=== PATIENT | male | born 1970 | race American Indian/Alaskan Native ===

== ENCOUNTER 2019-05-14 09:23 | Emergency (ER) | payer SELFPAY ==
[2019-05-14] MEDS ORDERED: predniSONE 20 MG TAB PO ONE (12:30)
[2019-05-14] MEDS ORDERED: IPRATROPIUM/ALBUTEROL SULFATE 3 ML AMPUL.NEB IH ONE ×3 (12:30→12:54)
--- NOTE | 2019-05-14 12:37 | Emergency Department Report ---
ED Asthma HPI - General Chief Complaint: Adult Asthma Stated Complaint: ASTHMA ATTACK Time Seen by Provider: 05/14/19 12:30 Source: patient Mode of arrival: Ambulatory Limitations: No Limitations - History of Present Illness Initial Comments: Chief complaint: "Asthma attack" HPI: This is a 49-year-old male with history of mild intermittent asthma who p resents with shortness of breath wheezing for the past day. He has asthma attack of this severity of approximately twice a year when he has a cold. Inhaler at home did not provide any relief. Denies pain. Denies fever. MD Complaint: "asthma attack", shortness of breath, wheezing -: Gradual, days(s) (2) Severity: moderate Context: recent URI Associated Symptoms: dry cough Treatments Prior to Arrival: inhaled bronchodilator - Related Data Previous Rx's Medication Instructions Recorded Last Taken Type Albuterol INH(or & Nicu Only) 2 puff IH QID PRN #8.5 gram 05/14/19 Unknown Rx [ProAir HFA Inhaler] predniSONE [Deltasone] 3 tab PO QDAY 3 Days #9 tab 05/14/19 Unknown Rx Allergies Allergy/AdvReac Type Severity Reaction Status Date / Time No Known Allergies Allergy Verified 05/14/19 12:33 ED Review of Systems ROS: Stated complaint: ASTHMA ATTACK Other details as noted in HPI Comment: All other systems reviewed and negative Constitutional: denies: fever, malaise Respiratory: cough, shortness of breath, wheezing Cardiovascular: denies: chest pain Gastrointestinal: denies: abdominal pain, nausea, vomiting ED Past Medical Hx - Past Medical History Previous Medical History?: Yes Hx Hypertension: Yes Hx Asthma: Yes - Surgical History Past Surgical History?: No - Social History Smoking Status: Never Smoker Substance Use Type: Alcohol - Medications Home Medications: Home Medications Medication Instructions Recorded Confirmed Last Taken Type Albuterol INH(or & Nicu Only) 2 puff IH QID PRN #8.5 gram 05/14/19 Unknown Rx [ProAir HFA Inhaler] predniSONE [Deltasone] 3 tab PO QDAY 3 Days #9 tab 05/14/19 Unknown Rx ED Physical Exam - General Limitations: No Limitations General appearance: alert, in no apparent distress - Head Head exam: Present: atraumatic, normocephalic - Eye Eye exam: Present: normal appearance - ENT ENT exam: Present: mucous membranes moist - Neck Neck exam: Present: normal inspection, full ROM, lymphadenopathy - Respiratory Respiratory exam: Present: respiratory distress, wheezes, decreased breath sounds, prolonged expiratory. Absent: rales, rhonchi, accessory muscle use - Cardiovascular Cardiovascular Exam: Present: regular rate, normal rhythm, normal heart sounds. Absent: systolic murmur, diastolic murmur, rubs, gallop - GI/Abdominal GI/Abdominal exam: Present: soft, normal bowel sounds. Absent: distended, tenderness, guarding, rebound - Rectal Rectal exam: Present: deferred - Extremities Exam Extremities exam: Present: normal inspection - Neurological Exam Neurological exam: Present: alert, oriented X3 - Psychiatric Psychiatric exam: Present: normal affect, normal mood - Skin Skin exam: Present: warm, dry, intact, normal color. Absent: rash ED Course Vital Signs 05/14/19 09:36 Temperature 98.8 F Pulse Rate 62 Respiratory 20 Rate Blood Pressure 134/78 O2 Sat by Pulse 94 Oximetry ED Medical Decision Making - Medical Decision Making Mild asthma exacerbation improved with serial duo nebs. Prescribed albuterol MDI and prednisone burst therapy. Critical care attestation.: If time is entered above; I have spent that time in minutes in the direct care of this critically ill patient, excluding procedure time. ED Disposition Clinical Impression: Asthma exacerbation Disposition: DC-01 TO HOME OR SELFCARE Is pt being admited?: No Does the pt Need Aspirin: No Condition: Stable Instructions: Asthma (ED) Prescriptions: predniSONE [Deltasone] 3 tab PO QDAY 3 Days #9 tab Albuterol INH(or & Nicu Only) [ProAir HFA Inhaler] 2 puff IH QID PRN #8.5 gram PRN Reason: Shortness Of Breath Referrals: RAYMUNDO CHAVEZ MD [Staff Physician] - 3-5 Days Forms: Work/School Release Form(ED)
[2019-05-14 14:20] VITALS: BP 136/82
== END 2019-05-14 14:19 | disposition home or self-care (01) ==
LOC: ED 09:23
DX: J45.901 Unspecified asthma with (acute) exacerbation (principal); I10 Essential (primary) hypertension; Z79.899 Other long term (current) drug therapy
CPT/HCPCS: 94640; 99283; J7512; 94644